=== PATIENT | female | born 1985 | race Caucasian/White ===

== ENCOUNTER 2017-08-17 05:32 | Observation (INO) | payer BC ==
[~2017-08-17] VITALS: Ht 162.6 cm; Wt 71.3 kg
[2017-08-17] MEDS ORDERED: POVIDONE IODINE 5% (ANTISEPSIS KIT) 4 APPLICATIONS EACH NARE PRN (05:45)
[2017-08-17] MEDS ORDERED: CHLORHEXIDINE GLUCONATE 2 % 1 PACK (2 CLOTHS) TOPICAL PRN (05:45)
[2017-08-17] MEDS ORDERED: METOPROLOL TARTRATE 25 MG TAB PO PRN (05:45)
[2017-08-17] MEDS ORDERED: ceFAZolin 2 GM PREMIX 50 ML IV SCH (05:45)
[2017-08-17] MEDS ORDERED: SODIUM CHLORID 0.9% 500 ML IV PRN (05:45)
[2017-08-17] MEDS ORDERED: LACTATED RINGER'S 1000 ML IV PRN (05:45)
[2017-08-17] MEDS ORDERED: INSULIN HUMAN REGULAR 1,000 UNITS/10 ML VIAL SQ PRN (05:45)
[2017-08-17] MEDS ORDERED: FAMOTIDINE 20 MG/2 ML VIAL ONE (06:46)
[2017-08-17] MEDS ORDERED: ACETAMINOPHEN 1000 MG/100 ML 100 ML IV ONE (06:46)
[2017-08-17 06:58] LABS: AUTOMATED NEUTROPHIL # 3.7 TH/MM3 (1.8-7.7); BASOPHIL % 0.3 % (0.0-2.0); EOSINOPHIL # 0.3 TH/MM3 (0-0.4); EOSINOPHIL % 4.1 % (0.0-4.0); HEMATOCRIT 25.5 % (35.0-46.0); HEMO FLAGS DIFF FINAL; LYMPH % 30.6 % (9.0-44.0); LYMPHOCYTE # 1.9 TH/MM3 (1.0-4.8); MEAN CELL VOLUME 63.8 FL (80.0-100.0); MEAN CORPUSCULAR HEMOGLOBIN 19.9 PG (27.0-34.0); MEAN CORPUSCULAR HGB CONC 31.1 % (32.0-36.0); MONO % 6.6 % (0.0-8.0); NEUT % 58.4 % (16.0-70.0); PLATELET COUNT 357 TH/MM3 (150-450); RED CELL DISTRIBUTION WIDTH 16.7 % (11.6-17.2); WHITE BLOOD COUNT 6.4 TH/MM3 (4.0-11.0)
[2017-08-17] MEDS ORDERED: LIDOCAINE 1.5%/EPINEPHrine 1:200,000 PF SOLN 10ML SDV INFIL ONE (08:08)
[2017-08-17] MEDS ORDERED: DO NOT ADM ANY ANTICOAGULANT DRUGS PRN (09:24)
--- NOTE | 2017-08-17 09:29 | PD.OP ---
Operative Report Date of Surgery: Aug 17, 2017 Preoperative Diagnosis: (1) Excessive menses (2) Fibroids, submucosal Postoperative Diagnosis: (1) Excessive menses (2) Fibroids, submucosal Procedure: LAVH bilateral salpingectomy Surgeon: Akshat Rodríguez Self Propelled Hot Mix Roller Operator(s): Akshat Gallardo MD Aug 17, 2017 09:29
[2017-08-17] MEDS ORDERED: IBUPROFEN 600 MG TAB PO PRN (09:30)
[2017-08-17] MEDS ORDERED: KETOROLAC TROMETHAMINE 30 MG/ML (IVP) VIAL IVP PRN (09:30)
[2017-08-17] MEDS ORDERED: oxyCODONE/ACETAMINOPHEN 5 MG/325 MG TAB PO PRN (09:30)
[2017-08-17] MEDS ORDERED: SODIUM CHLORIDE 0.9% FLUSH 10 ML FLUSH IV FLUSH PRN (09:30)
[2017-08-17] MEDS ORDERED: ONDANSETRON HCL 4 MG/2 ML VIAL IVP PRN (09:30)
[2017-08-17] MEDS ORDERED: diphenhydrAMINE HCL 25 MG CAP PO PRN (09:30)
[2017-08-17] MEDS ORDERED: HYDROmorphone HCL PF 1 MG/ML VIAL IVP PRN (09:30)
--- NOTE | 2017-08-17 10:07 | MP ---
cc: ALANA RODRÍGUEZ M.D. DATE OF SURGERY 08/17/2017 PROCEDURE Laparoscopic-assisted vaginal hysterectomy with bilateral salpingectomy. PREOPERATIVE DIAGNOSIS Menorrhagia and fibroids. POSTOPERATIVE DIAGNOSIS Menorrhagia and fibroids and a prolapsed fibroid. SURGEON Dr. Alana Rodríguez ANESTHESIA Jonn Osei MD COMPLICATIONS None ESTIMATED BLOOD LOSS 400 cc FINDINGS Normal female pelvic anatomy within a large fibroid uterus and a prolapsed fibroid. PROCEDURE IN DETAIL After informed consent, the patient taken to the operating room where she was placed under general anesthesia and placed in the spine position, legs in the Yellow-fin stirrups. The abdomen, perineum and vagina prepped and draped in the normal sterile fashion. After adequate anesthesia was assured and a time-out was taken, a speculum was placed in the vagina. The cervix grasped with a single-toothed tenaculum and the uterine manipulator was placed into place, a HUMI type. At this point, a Hawthorne catheter was then placed to dependent gravity. Gloves were changed and a 5 mm infraumbilical incision was then made after injecting with quarter percent Marcaine with epinephrine. We entered the abdomen under direct visualization and left and right lower quadrant 5 mm trocars were placed. Good hemostasis was achieved at all sites and lidocaine 1.5% with epinephrine was used. The upper and lower abdomen was normal. The appendix was normal. The ovaries were normal. The fallopian tubes were then released from the ovaries with a Harmonic scalpel. Good hemostasis was achieved along the mesosalpinx. We got to the level of the uterus and came across the utero-ovarian ligament and the round ligament. We came down the broad ligament down to the level of the bladder flap, created a bladder flap by dissecting the bladder off the lower uterine segment and the cervix. Once this was dissected down with good hemostasis, the uterine arteries were taken bilaterally. Good blanching was noted at the uterus. Our attention was then turned down to the vaginal portion of the case where we placed a speculum into vagina, removed the HUMI uterine manipulator. We then proceeded to incise the anterior portion of cervix down to the level of fascia, dissected the fashion until we met our incision from above and entered the anterior cul-de-sac. We entered the posterior cul-de-sac in a single incision without difficulty and then we proceeded to dissect out the cervical branch of the uterine arteries. These were clamped, cut and tied. Uterosacral and cardinal ligaments had been clamped, cut, tied. Once we met our incision from above, we removed the uterus. The vaginal cuff was run with a running locked stitch of Vicryl suture and then [id number] sutures were placed. Good hemostasis was achieved all pedicles. The 5 mm trocar sites were closed. The patient tolerated the procedure well. Lap and instrument counts were reported as correct. The patient taken to the recovery room in stable condition. MD ALVIN Crooks/ABE /9:04 AM /9:59 AM
[2017-08-17] MEDS ORDERED: LACTATED RINGER'S 1000 ML INJ 1,000 ML IV SCH (11:00)
[2017-08-17] MEDS ORDERED: *morphine SULFATE 8 MG/ML PERIprocedure ONLY ONE (12:11)
[2017-08-17] MEDS ORDERED: GLYCOPYRROLATE 1 MG/5 ML SYRINGE IV PUSH ONE (13:11)
[2017-08-17] MEDS ORDERED: LIDOCAINE HCL 1% PF 5 ML AMPULE OTHER ONE (13:11)
[2017-08-17] MEDS ORDERED: KETOROLAC TROMETHAMINE 30 MG/ML (IVP) VIAL IV PUSH ONE (13:11)
[2017-08-17] MEDS ORDERED: NEOSTIGMINE 3 MG/3 ML SYR IV ONE (13:11)
[2017-08-17] MEDS ORDERED: PHENYLEPH/NS 1000 MCG/10 ML SYR IV ONE (13:11)
[2017-08-17] MEDS ORDERED: DEXAMETHASONE SOD PHOS 4 MG/ML VIAL IV ONE (13:11)
[2017-08-17] MEDS ORDERED: LACTATED RINGER'S 1000 ML INJ 2,000 ML IV ONE (13:11)
[2017-08-17] MEDS ORDERED: MIDAZOLAM HCL 2 MG/2 ML VIAL IV ONE (13:11)
[2017-08-17] MEDS ORDERED: PROPOFOL 200 MG/20 ML AMP IV ONE (13:11)
[2017-08-17] MEDS ORDERED: ROCURONIUM INJ 50 MG/5 ML SYRINGE IV PUSH ONE (13:11)
[2017-08-17] MEDS ORDERED: ONDANSETRON HCL 4 MG/2 ML VIAL IV PUSH ONE (13:11)
[2017-08-17 13:50] VITALS: BP 102/67; PULSE 84; RESP 16; TEMP 96.7; O2SAT 100
[2017-08-17 16:00] VITALS: BP 110/73; PULSE 103; RESP 16; TEMP 98.6; O2SAT 100
[2017-08-17] MEDS: oxyCODONE/ACETAMINOPHEN 5 MG/325 MG TAB PO PRN (17:37)
[2017-08-17 20:00] VITALS: BP 96/53; PULSE 82; RESP 16; TEMP 98.6; O2SAT 97
[2017-08-17] MEDS: SODIUM CHLORIDE 0.9% FLUSH 10 ML FLUSH IV FLUSH SCH (20:11)
[2017-08-18] VITALS: BP 96/51; PULSE 75; RESP 17; TEMP 97.2; O2SAT 98
[2017-08-18] MEDS: oxyCODONE/ACETAMINOPHEN 5 MG/325 MG TAB PO PRN ×3 (01:44→11:14)
[2017-08-18 04:00] VITALS: BP 101/55; PULSE 75; RESP 17; TEMP 97; O2SAT 100
--- NOTE | 2017-08-18 07:29 | HHI.PR ---
Subjective Remarks Doing well, pain is well controlled, eating well. Objective Vital Signs Vital Signs Date Time Temp Pulse Resp B/P (MAP) Pulse Ox O2 Delivery O2 Flow Rate FiO2 08/18/17 04:00 97.0 75 17 101/55 (70) 100 08/18/17 00:00 97.2 75 17 96/51 (66) 98 08/17/17 20:00 98.6 82 16 96/53 (67) 97 08/17/17 16:00 98.6 103 16 110/73 (85) 100 08/17/17 13:50 96.7 84 16 102/67 (79) 100 08/17/17 13:30 98.6 84 17 99/59 (72) 100 Room Air 08/17/17 13:00 78 16 98/56 (70) 99 Room Air 08/17/17 12:00 76 16 97/55 (69) 100 Room Air 08/17/17 11:00 71 15 104/57 (73) 100 Room Air 08/17/17 10:30 61 16 97/56 (70) 100 Room Air 08/17/17 10:15 63 15 105/58 (74) 100 Nasal Cannula 2 08/17/17 10:00 73 12 95/51 (66) 100 Nasal Cannula 2 08/17/17 09:45 69 15 92/51 (65) 100 Nasal Cannula 2 08/17/17 09:30 67 15 104/60 (75) 100 Nasal Cannula 2 08/17/17 09:25 97.8 99 16 105/60 (75) 100 Nasal Cannula 2 I/O 08/17/17 08/17/17 08/17/17 08/18/17 08/18/17 08/18/17 07:00 15:00 23:00 07:00 15:00 23:00 Intake Total 50 ml 2400 ml 480 ml Output Total 250 ml 600 ml 1200 ml Balance 50 ml 2150 ml -600 ml -720 ml Intake Oral 100 ml 480 ml IV Total 50 ml 500 ml Other 1800 ml Output Urine Total 150 ml 600 ml 1200 ml Estimated Blood Loss 100 ml # Sanitary Pads 1 Pads 1 Pads Result Diagram: 08/17/17 0623 Objective Remarks Chest is clear, regular rate and rhythm. Abdomen is soft and non-distended. Incision is clean and dry. Ext no CCE. A/P Assessment and Plan Post Op Day 1 Doing well Home today and return to office in two weeks. Akshat Rodríguez MD Aug 18, 2017 07:29
--- NOTE | 2017-08-18 07:32 | HHI.DCPOC ---
Discharge Care Plan Diagnosis: (1) Fibroids, submucosal (2) Excessive menses Report Symptoms to Your Doctor -Temperature above 100.5 degrees -Redness, of incision or excessive or foul smelling drainage -Unusual pain or calf pain -Increased vaginal bleeding -Painful or difficulty urinating -Feelings of extreme sadness or anxiety after 2 weeks Goals to Promote Your Health * To prevent worsening of your condition and complications * To maintain your health at the optimal level Directions to Meet Your Goals Take your medications as prescribed Follow your dietary instruction Follow activity as directed Ensure plenty of rest for recovery Drink fluids for hydration Keep your appointments as scheduled Take your immunizations and boosters as scheduled If your symptoms worsen call your PCP, if no PCP go to Urgent Care Center or Emergency Room Smoking is Dangerous to Your Health. Avoid second hand smoke Call the 24-hour crisis hotline for domestic abuse at Akshat Rodríguez MD Aug 18, 2017 07:32
[2017-08-18] MEDS ORDERED: OXYC1TAB63 PO (07:33)
--- NOTE | 2017-08-18 07:36 | HHI.DS ---
Admission Date Aug 17, 2017 at 09:25 Discharge Date: Aug 18, 2017 Admitting Diagnosis Diagnosis: (1) Excessive menses Diagnosis: Principal ICD Codes: N92.0 - Excessive and frequent menstruation with regular cycle Brief History 32 yo with heavy menses and need for HYST. Anemia 8.0 Hospital Course Patient had LAVH and doing well Pt Condition on Discharge: Good Discharge Disposition: Discharge Home Discharge Instructions Diet Instructions: As Tolerated, No Restrictions Activities You Can Perform: Pelvic Rest Activities to Avoid: Driving for 24 hrs Follow up Referrals: SHELTER CASE MANAGER - 2 Weeks @ [facility] with Akshat Rodríguez MD New Medications: Oxycodone-Acetaminophen (Oxycodone-Acetaminophen) 5-325 mg Tab 1 TAB PO Q4H PRN for PAIN SCALE 1 TO 5 for 5 Days, #30 TAB 0 Refills Akshat Rodríguez MD Aug 18, 2017 07:36
[2017-08-18 08:00] VITALS: BP 107/72; PULSE 80; RESP 16; TEMP 96.9; O2SAT 100
[2017-08-18 08:00] LABS: AUTOMATED NEUTROPHIL # 6.3 TH/MM3 (1.8-7.7); BASOPHIL % 0.1 % (0.0-2.0); EOSINOPHIL # 0.1 TH/MM3 (0-0.4); EOSINOPHIL % 0.9 % (0.0-4.0); LYMPH % 21.1 % (9.0-44.0); LYMPHOCYTE # 1.8 TH/MM3 (1.0-4.8); MEAN CELL VOLUME 63.9 FL (80.0-100.0); MEAN CORPUSCULAR HEMOGLOBIN 19.5 PG (27.0-34.0); MEAN CORPUSCULAR HGB CONC 30.5 % (32.0-36.0); MONO % 5.9 % (0.0-8.0); PLATELET COUNT 263 TH/MM3 (150-450); RED BLOOD COUNT 3.33 MIL/MM3 (4.00-5.30); RED CELL DISTRIBUTION WIDTH 16.3 % (11.6-17.2); WHITE BLOOD COUNT 8.7 TH/MM3 (4.0-11.0)
[2017-08-18 08:05] LABS: HEMO FLAGS DIFF FINAL
[2017-08-18 08:06] LABS: HEMATOCRIT 21.3 % (35.0-46.0)
[2017-08-18] MEDS: SODIUM CHLORIDE 0.9% FLUSH 10 ML FLUSH IV FLUSH SCH (11:15)
[2017-08-18 12:00] VITALS: BP 103/61; PULSE 93; RESP 14; TEMP 99.7; O2SAT 100
== END 2017-08-18 12:54 | disposition home or self-care (01) ==
LOC: HSDC 05:32 → HSDI 09:25 → HOCA 13:52
PROVIDERS: ADMIT Obstetrics & Gynecology; ATTEND Obstetrics & Gynecology
DX: N92.0 Excessive and frequent menstruation with regular cycle (principal); D25.0 Submucous leiomyoma of uterus; D64.9 Anemia, unspecified; N83.8 Other noninflammatory disorders of ovary, fallopian tube and broad ligament; N80.0 Endometriosis of uterus
CPT/HCPCS: 84703; 85025; 86850; 86900; 86901; 88307; 96361; 96374; G0378; J0131; J0690; J1100; J1885; J2250; J2270; J2370; J2405; J2710; J3010; J7120